=== PATIENT | male | born 1980 | race Caucasian/White ===

== ENCOUNTER 2023-11-01 09:20 | Emergency (ER) | payer OTHER ==
[~2023-11-01] VITALS: Ht 172.7 cm; Wt 90.3 kg
[2023-11-01 09:36] VITALS: BP 180/100; PULSE 73; RESP 18; TEMP 98; O2SAT 98
[2023-11-01] MEDS: KETOROLAC 30 MG/ML VIAL IM ONE (12:02)
[2023-11-01] MEDS ORDERED: CYCL-711 PO (12:12)
[2023-11-01] MEDS ORDERED: DICL100G32 TP (12:12)
[2023-11-01] MEDS ORDERED: IBUP-2213 PO (12:12)
[2023-11-01] MEDS ORDERED: LID5T TP (12:12)
[2023-11-01 12:14] LABS: APPEARANCE,URINE CLEAR (CLEAR); BILIRUBIN,URINE NEGATIVE (NEGATIVE); BLOOD, URINE NEGATIVE (NEGATIVE); COLOR,URINE LT. YELLOW (YELLOW); LEUKOCYTE ESTERASE ,URINE NEGATIVE (NEGATIVE); NITRITE, URINE NEGATIVE (NEGATIVE); PROTEIN,URINE NEGATIVE (NEGATIVE); UGLUCOSE NEGATIVE (NEGATIVE); UROBILINOGEN,URINE 0.2 EU/dL (0.2 - 1)
[2023-11-01 12:39] VITALS: BP 134/70; PULSE 84; RESP 18; TEMP 98.3; O2SAT 96
== END 2023-11-01 12:23 | disposition home or self-care (01) ==
LOC: MED 09:20
DX: M54.50 Low back pain, unspecified (principal); Z79.899 Other long term (current) drug therapy
CPT/HCPCS: 72110; 81003; 96372; 99284; J1885